=== PATIENT | female | born 1955 | race Caucasian/White ===

== ENCOUNTER → 2017-08-31 | Outpatient (CLI) | payer BC ==
[2017-08-31 08:30] LABS: HEMATOCRIT 44.8 % (37.0-47.0); HEMOGLOBIN 15.2 g/dl (12.5-16.0); MEAN CELL VOLUME 95 fl (80.0-100.0); MEAN CORPUSCULAR HEMOGLOBIN 32 pg (27.0-31.0); MEAN CORPUSCULAR HGB CONC 34 g/dl (33.0-37.0); MEAN PLATELET VOLUME 10.1 fl (7.4-10.4); PLATELET COUNT 303 K/mm3 (130-400); RED BLOOD COUNT 4.74 M/mm3 (4.10-5.30); REDCELL DISTRIBUTION WIDTH-CV 11.9 % (11.5-14.5)
[2017-08-31 08:41] LABS: ALBUMIN 4.4 gm/dL (3.5-5.0); BILIRUBIN,TOTAL 0.5 mg/dL (0.0-1.0); CALCIUM 9.6 mg/dL (8.4-10.2); CREATININE, serum 0.61 mg/dL (0.52-1.25); POTASSIUM 4.5 mmol/L (3.4-5.0); TOTAL PROTEIN 7.2 gm/dL (6.4-8.2)
== END ==
LOC: COL.CARD 07:51
PROVIDERS: Surgery
DX: Z01.818 Encounter for other preprocedural examination (principal)

== ENCOUNTER 2017-09-03 12:20 | Day surgery (SDC) | payer BC ==
[2017-09-03] VITALS (7 sets, daily range): BP systolic 93–130; BP diastolic 44–74; PULSE 55–90; TEMP 98.2–98.9
[~2017-09-03] VITALS: Ht 175.3 cm; Wt 58.4 kg
[2017-09-03] MEDS ORDERED: COLLAGENASE 1 ML1 ML PO (13:28)
[2017-09-03] MEDS ORDERED: ALOE VERA CONCE1 CAP PO (13:29)
[2017-09-03] MEDS ORDERED: BIOTIN2500 MCG PO (13:29)
[2017-09-03] MEDS ORDERED: K-PHOS ORIGINA500 MG PO (13:31)
[2017-09-03] MEDS ORDERED: VITAMIN E 400 U4001 PO (13:33)
[2017-09-03] MEDS ORDERED: VITAMIN A10k PO (13:34)
[2017-09-03] MEDS ORDERED: FOLIC ACID0.8 MG PO (13:35)
[2017-09-03] MEDS ORDERED: VITAMINC1000TA PO (13:36)
[2017-09-03] MEDS ORDERED: CALCIUM CARBON650 M2 PO (13:36)
[2017-09-03] MEDS ORDERED: PHARMASSURE ZIN50 MG PO (13:37)
[2017-09-03] MEDS ORDERED: PROFE180 MG PO (13:37)
[2017-09-03] MEDS ORDERED: NATURAL MAGNES200 MG PO (13:38)
[2017-09-03] MEDS ORDERED: WOMEN'S DAILY1 TAB PO (13:38)
[2017-09-03] MEDS ORDERED: MASON NATURAL1200 MG PO (13:40)
[2017-09-03] MEDS ORDERED: ROXICODONE 55 MG/TAB PO (20:49)
[2017-09-03] MEDS ORDERED: TYLENOL 500MG500 MG PO (20:50)
== END 2017-09-03 21:15 | disposition home or self-care (01) ==
LOC: SDCO 12:20 → SURG 18:32 → SDCO 21:15
DX: K40.90 Unilateral inguinal hernia, without obstruction or gangrene, not specified as recurrent (principal); F17.210 Nicotine dependence, cigarettes, uncomplicated; Z80.9 Family history of malignant neoplasm, unspecified
CPT/HCPCS: OP; C1781; J1100; J2270; J2405; J2704; J2710; J3010; J7120

== ENCOUNTER 2017-12-20 05:40 | Emergency (ER) | payer BC ==
[~2017-12-20] VITALS: Ht 175.3 cm; Wt 60.5 kg
[~2017-12-20 05:40] MED LIST: ALOE VERA CONCE1 CAP PO; BIOTIN2500 MCG PO; CALCIUM CARBON650 M2 PO; COLLAGENASE 1 ML1 ML PO; FOLIC ACID0.8 MG PO; K-PHOS ORIGINA500 MG PO; MASON NATURAL1200 MG PO; NATURAL MAGNES200 MG PO; PHARMASSURE ZIN50 MG PO; PROFE180 MG PO; ROXICODONE 55 MG/TAB PO; TYLENOL 500MG500 MG PO; VITAMIN A10k PO; VITAMIN E 400 U4001 PO; VITAMINC1000TA PO; WOMEN'S DAILY1 TAB PO
[2017-12-20 05:47] VITALS: TEMP 97.4
[2017-12-20 06:38] LABS: COLLECTION METHOD CLEAN CATCH
[2017-12-20 06:42] LABS: BASO # 0.1 (0.0-0.2); BASO % 0.4 % (0.0-2.0); EOS # 0.3 (0.0-0.7); EOS % 1.1 % (0-4.0); GRAN % 78.2 % (42.2-75.2); HEMATOCRIT 43.2 % (37.0-47.0); HEMOGLOBIN 14.4 g/dl (12.5-16.0); LYMPH # 3.7 (1.2-3.4); LYMPH % 15.9 % (20.0-51.0); MEAN CELL VOLUME 96 fl (80.0-100.0); MEAN CORPUSCULAR HEMOGLOBIN 32 pg (27.0-31.0); MEAN CORPUSCULAR HGB CONC 33 g/dl (33.0-37.0); MEAN PLATELET VOLUME 10.1 fl (7.4-10.4); MONO # 0.9 (0.1-0.6); MONO % 3.8 % (1.7-9.3); PLATELET COUNT 317 K/mm3 (130-400); RED BLOOD COUNT 4.48 M/mm3 (4.10-5.30); REDCELL DISTRIBUTION WIDTH-CV 11.8 % (11.5-14.5)
[2017-12-20 06:54] LABS: ALANINE AMINOTRANSFERASE 40 U/L (9-52); ALBUMIN 4.4 gm/dL (3.5-5.0); ALKALINE PHOSPHATASE 54 U/L (50-136); ANION GAP 7 mmol/L (7-16); AST,SGOT 28 U/L (15-37); BILIRUBIN,TOTAL 0.4 mg/dL (0.0-1.0); BLOOD UREA NITROGEN 13 mg/dL (7-17); CALCIUM 9.5 mg/dL (8.4-10.2); CARBON DIOXIDE 23 mmol/L (22-30); CHLORIDE 110 mmol/L (98-107); GLUCOSE 144 mg/dL (74-106); LIPASE 134 U/L (23-300); POTASSIUM 4.2 mmol/L (3.4-5.0); SODIUM 140 mmol/L (137-145); TOTAL PROTEIN 7.2 gm/dL (6.4-8.2)
[2017-12-20 06:55] LABS: C-REACTIVE PROTEIN < 0.5 mg/dL (0.0-0.9); MUCOUS Present /lpf; PH 5 (5-8); SQUAMOUS EPITHELIAL None Seen /hpf; URINE APPEARANCE Clear; URINE BACTERIA Rare /hpf; URINE BILIRUBIN Negative (NEGATIVE); URINE BLOOD Negative (NEGATIVE); URINE COLOR Yellow; URINE GLUCOSE Negative (NEGATIVE); URINE KETONE Negative (NEGATIVE); URINE LEUKOCYTE ESTERASE Negative (NEGATIVE); URINE NITRATE Negative (NEGATIVE); URINE PROTEIN(semi-quant) Negative (NEGATIVE); URINE RBC 0-2 /hpf; URINE UROBILINOGEN Negative (NEGATIVE)
[2017-12-20 08:40] VITALS: BP 111/61; PULSE 66
== END 2017-12-20 08:42 | disposition home or self-care (01) ==
LOC: COL.ER 05:40
PROVIDERS: Emergency Medicine
DX: N23 Unspecified renal colic (principal); F17.210 Nicotine dependence, cigarettes, uncomplicated; Z98.890 Other specified postprocedural states
CPT/HCPCS: J3010; Q9967

== ENCOUNTER → 2018-01-17 | Outpatient (CLI) | payer BC | LOC: COL.RAD 07:39 | DX: E27.9 Disorder of adrenal gland, unspecified (principal) ==